=== PATIENT | male | born 1945 | race Hispanic/Latino ===

== ENCOUNTER 2017-02-17 17:37 | Inpatient (IN) | payer MEDICARE ==
[2017-02-17] MEDS ORDERED: MORPHINE IV PRN (18:38)
[2017-02-17] MEDS ORDERED: DILAUDID IV PRN (21:24)
[2017-02-17] MEDS: LOPRESSOR PO SCH ×2 (22:02→22:07)
[2017-02-17] MEDS: HEPARIN SUB-Q SCH (22:03)
[2017-02-17] MEDS: ZOSYN/NS 4.5GM/100ML 4.5 GM/100 ML VIAL IV SCH (23:00)
[2017-02-17] MEDS: NACL 0.9% 1000 ML 1,000 ML IV SCH (23:21)
[2017-02-18 06:14] LABS: Basophils % (Auto) 0.7 % (0.0-1.8); Eosinophils % (Auto) 2.2 % (0.0-4.3); Hematocrit 37.7 % (35.5-45.6); Hemoglobin 12.8 gm/dl (11.8-15.2); Mean Corpuscular HGB Conc 34 % (32-34); Mean Corpuscular Hemoglobin 32 pg (28-32); Mean Corpuscular Volume 93 fl (84-94); Platelet Count 114 K/mm3 (140-440); Red Blood Count 4.04 M/mm3 (3.65-5.03); Red Cell Distribution Width 14.2 % (13.2-15.2); White Blood Count 6.1 K/mm3 (4.5-11.0)
[2017-02-18] MEDS: ZOSYN/NS 4.5GM/100ML 4.5 GM/100 ML VIAL IV SCH ×3 (06:14→22:28)
[2017-02-18 06:30] LABS: Anion Gap 15 mmol/L; BUN/Creatinine Ratio 12; Blood Urea Nitrogen 11 mg/dL (9-20); Calcium 8.3 mg/dL (8.4-10.2); Carbon Dioxide 27 mmol/L (22-30); Chloride 103.3 mmol/L (98-107); Glucose 96 mg/dL (75-100); Sodium 141 mmol/L (137-145)
--- NOTE | 2017-02-18 07:10 | History and Physical Report ---
History of Present Illness Date of admission: 02/17/17 19:26 Chief complaint: I have diverticulitis History of present illness: 71 YO Male with Atrial Fib, HTN directly admitted to [facility] at the request of Dr. Iraheta. Pt seen and evaluated by his surgeon and underwent a CT abdomen and pelvis and was found to have diverticulitis with microperforation. Pt seen and evaluated upon arrival. Pt resting comfortably in bed, and is in no acute distress. Pt states that his pain is at level 2, but increases slightly with movement. Pt denies fever, chills, CP, Palpitations, NVD, Syncope, BRBPR, recent ill contacts, Trauma, unintentional weight loss, night sweats, productive cough, or worsening abdominal pain. Past History Past Medical History: atrial fib, hypertension Past Surgical History: Other (Toe surgery) Social history: , lives with family. denies: smoking, alcohol abuse, prescription drug abuse Family history: no significant family history, other (reviewed) Medications and Allergies Allergies Allergy/AdvReac Type Severity Reaction Status Date / Time No Known Allergies Allergy Unverified 02/17/17 18:16 Active Meds: Active Medications Heparin Sodium (Porcine) (Heparin) 5,000 unit SUB-Q Q12H [facility] Last Admin: 02/17/17 22:03 Dose: 5,000 unit Hydromorphone HCl (Dilaudid) 0.5 mg IV Q6H PRN PRN Reason: Pain , Severe (7-10) Last Admin: 02/17/17 21:59 Dose: 0.5 mg Sodium Chloride (Nacl 0.9% 1000 Ml) 1,000 mls @ 100 mls/hr IV DIRECT [facility] Last Admin: 02/17/17 23:21 Dose: 100 mls/hr Piperacillin Sod/Tazobactam Sod (Zosyn/Ns 4.5gm/100ml) 4.5 gm in 100 mls @ 200 mls/hr IV Q8HR [facility] PRN Reason: Protocol Last Admin: 02/18/17 06:14 Dose: 200 mls/hr Metoprolol Tartrate (Lopressor) 50 mg PO DAILY [facility] Last Admin: 02/17/17 22:07 Dose: Not Given Review of Systems Constitutional: other (diverticulitis), no weight gain, no fever, no chills, no sweats, no night sweats, no fatigue, no weakness Ears, nose, mouth and throat: no ear pain, no ear discharge, no tinnitis, no decreased hearing, no nose pain, no nasal congestion Cardiovascular: no chest pain, no orthopnea, no palpitations, no rapid/ irregular heart beat, no edema, no syncope, no lightheadedness, no shortness of breath Respiratory: no cough, no cough with sputum, no excessive sputum, no hemoptysis Gastrointestinal: abdominal pain, no nausea, no vomiting, no diarrhea, no constipation, no change in bowel habits, no hematemesis, no BRBPR, no melena, no hematochezia, no loss of appetite Genitourinary Male: no dysuria, no hematuria, no flank pain, no discharge Rectal: no pain, no incontinence, no bleeding Musculoskeletal: no neck stiffness, no neck pain, no shooting arm pain, no arm numbness/tingling, no low back pain Integumentary: no rash, no pruritis, no redness, no sores, no wounds Neurological: no transient paralysis, no paralysis, no weakness, no parathesias , no numbness, no tingling, no seizures Psychiatric: no anxiety, no memory loss, no change in sleep habits, no sleep disturbances, no insomnia, no hypersomnia Endocrine: no cold intolerance, no heat intolerance, no polyphagia, no excessive thirst, no polydipsia, no polyuria, no nocturia Hematologic/Lymphatic: no easy bruising, no easy bleeding Allergic/Immunologic: no urticaria, no allergic rhinitis, no wheezing Exam - Constitutional Vitals: Temp Pulse Resp BP Pulse Ox 98.6 F 75 16 87/54 96 02/18/17 05:15 02/18/17 05:15 02/18/17 05:15 02/18/17 05:15 02/18/17 05:15 General appearance: Present: no acute distress, well-nourished - EENT Eyes: Present: PERRL ENT: hearing intact, clear oral mucosa - Neck Neck: Present: supple, normal ROM - Respiratory Respiratory effort: normal Respiratory: bilateral: CTA - Cardiovascular Heart Sounds: Present: S1 & S2. Absent: rub, click - Extremities Extremities: pulses symmetrical, No edema Peripheral Pulses: within normal limits - Abdominal General gastrointestinal: Present: soft, non-tender, non-distended, normal bowel sounds. Absent: hepatomegaly, splenomegaly, mass, hernia Localized gastrointestinal: tender: LUQ (No rebound, guarding, no peritoneal signs) Male genitourinary: Present: normal - Rectal Rectal Exam: normal rectal tone - Integumentary Integumentary: Present: clear, warm, dry - Musculoskeletal Musculoskeletal: gait normal, strength equal bilaterally - Psychiatric Psychiatric: appropriate mood/affect, intact judgment & insight - Neurologic Neurologic: CNII-XII intact, moves all extremities Results - Labs CBC & Chem 7: 02/18/17 05:19 02/18/17 05:19 Labs: Abnormal lab results 02/18/17 02/18/17 Range/Units 05:19 05:19 Plt Count 114 L (140-440) K/mm3 [place] % (Auto) 10.7 H (0.0-7.3) % Calcium 8.3 L (8.4-10.2) mg/dL Assessment and Plan - Patient Problems (1) Diverticulitis Current Visit: Yes Status: Acute Plan to address problem: IV abx, pain control, supportive care, surgery consulted, serial abdominal exam , repeat imaging of abdomen/surgical intervention as per surgical team. Hold aspirin/therapeutic anticoagulation for now, initiate heparin drip, NPO at midnight, bowel rest, IVF resuscitation, (2) Perforation bowel Current Visit: Yes Status: Acute Plan to address problem: Surgery consulted, serial abdominal exam, surgical intervention as per surgical team. (3) Atrial fib/flutter, transient Current Visit: Yes Status: Acute Plan to address problem: Discontinue oral therapeutic anticoagulation, initiate heparin drip, continue rate control with metoprolol (4) HTN (hypertension) Current Visit: Yes Status: Acute Plan to address problem: monitor bp q shift, pain control, resume metoprolol, (5) DVT prophylaxis Current Visit: Yes Status: Acute
--- NOTE | 2017-02-18 07:54 | Progress Note ---
Assessment and Plan Assessment and plan: --Acute diverticulitis : Continue nothing by mouth, IV fluids, IV antibiotics, surgery following supportive care --Possible microperforation; continue supportive care --History of recurrent diverticulitis; management per surgery Antibiotics and IV fluids --History of atrial fibrillation; rate controlled Continue current beta blockers and supportive care, hold anticoagulation --Hypertension: Continue current antihypertensives and when necessary medications --DVT prophylaxis; SCDs --Full code Follow surgery evaluation and recommendations Plan of care discussed with the patient answered all his questions History Interval history: Patient seen and examined in his room this morning medical records reviewed Admitted with acute diverticulitis and possible microperforation Nothing by mouth status, on IV fluids and IV antibiotics Patient feels possible mild left lower quadrant pain Denies nausea vomiting Hospitalist Physical - Constitutional Vitals: Temp Pulse Resp BP Pulse Ox 98.6 F 75 16 87/54 96 02/18/17 05:15 02/18/17 05:15 02/18/17 05:15 02/18/17 05:15 02/18/17 05:15 General appearance: Present: no acute distress, well-nourished - EENT Eyes: Present: PERRL, EOM intact - Neck Neck: Present: supple, normal ROM - Respiratory Respiratory effort: normal Respiratory: negative: rales, rhonchi, wheezing - Cardiovascular Rhythm: regular Heart Sounds: Present: S1 & S2 - Extremities Extremities: no ischemia, No edema - Abdominal General gastrointestinal: soft, tender (no guarding no rigidity), non-distended , hypoactive bowel sounds - Integumentary Integumentary: Present: clear, warm - Psychiatric Psychiatric: appropriate mood/affect, cooperative - Neurologic Neurologic: CNII-XII intact, moves all extremities Results - Labs CBC & Chem 7: 02/18/17 05:19 02/18/17 05:19 Labs: Laboratory Last Values WBC 6.1 K/mm3 (4.5-11.0) 02/18/17 05:19 RBC 4.04 M/mm3 (3.65-5.03) 02/18/17 05:19 Hgb 12.8 gm/dl (11.8-15.2) 02/18/17 05:19 Hct 37.7 % (35.5-45.6) 02/18/17 05:19 MCV 93 fl (84-94) 02/18/17 05:19 MCH 32 pg (28-32) 02/18/17 05:19 MCHC 34 % (32-34) 02/18/17 05:19 RDW 14.2 % (13.2-15.2) 02/18/17 05:19 Plt Count 114 K/mm3 (140-440) L 02/18/17 05:19 Lymph % (Auto) 29.5 % (13.4-35.0) 02/18/17 05:19 [place] % (Auto) 10.7 % (0.0-7.3) H 02/18/17 05:19 Eos % (Auto) 2.2 % (0.0-4.3) 02/18/17 05:19 Baso % (Auto) 0.7 % (0.0-1.8) 02/18/17 05:19 Lymph # 1.8 K/mm3 (1.2-5.4) 02/18/17 05:19 [place] # 0.7 K/mm3 (0.0-0.8) 02/18/17 05:19 Eos # 0.1 K/mm3 (0.0-0.4) 02/18/17 05:19 Baso # 0.0 K/mm3 (0.0-0.1) 02/18/17 05:19 Seg Neutrophils % 56.9 % (40.0-70.0) 02/18/17 05:19 Seg Neutrophils # 3.5 K/mm3 (1.8-7.7) 02/18/17 05:19 Sodium 141 mmol/L (137-145) 02/18/17 05:19 Potassium 4.0 mmol/L (3.6-5.0) 02/18/17 05:19 Chloride 103.3 mmol/L (98-107) 02/18/17 05:19 Carbon Dioxide 27 mmol/L (22-30) 02/18/17 05:19 Anion Gap 15 mmol/L 02/18/17 05:19 BUN 11 mg/dL (9-20) 02/18/17 05:19 Creatinine 0.9 mg/dL (0.8-1.5) 02/18/17 05:19 Estimated GFR > 60 ml/min 02/18/17 05:19 BUN/Creatinine Ratio 12 % 02/18/17 05:19 Glucose 96 mg/dL (75-100) 02/18/17 05:19 Calcium 8.3 mg/dL (8.4-10.2) L 02/18/17 05:19
[2017-02-18] MEDS: NACL 0.9% 1000 ML 1,000 ML IV SCH ×2 (08:28→19:15)
[2017-02-18] MEDS: HEPARIN SUB-Q SCH ×2 (11:22→22:30)
[2017-02-18] MEDS: LOPRESSOR PO SCH ×2 (11:23→22:30)
[2017-02-18] MEDS: PROTONIX IV SCH (11:26)
--- NOTE | 2017-02-18 15:02 | Consultation ---
History of Present Illness Consult date: 02/18/17 Reason for consult: other (Perforated diverticulitis) - History of present illness History of present illness: 71 year old male who was discharged about a month ago for an episode of diverticulitis. This was managed conservatively. He presented to my office yesterday with a 12 hour history of bilateral lower quadrant abdominal pain, left greater than right. He stated that this felt similar to his recent episode of diverticulitis. He denied any associated fever or chills but did state that he has noticed some hematochezia. He has never had a colonoscopy. We are waiting for his diverticulitis to resolve before scheduling for colonoscopy. He denies any hematuria, dysuria or urinary frequency. He is on Eloquis for atrial fibrillation. Past History Past Medical History: atrial fib, hypertension Past Surgical History: Other (Toe surgery) Social history: , lives with family. denies: smoking, alcohol abuse, prescription drug abuse Family history: no significant family history, other (reviewed) Medications and Allergies Allergies Allergy/AdvReac Type Severity Reaction Status Date / Time No Known Allergies Allergy Unverified 02/17/17 18:16 Active Meds: Active Medications Heparin Sodium (Porcine) (Heparin) 5,000 unit SUB-Q Q12H [facility] Last Admin: 02/18/17 11:22 Dose: Not Given Hydromorphone HCl (Dilaudid) 0.5 mg IV Q6H PRN PRN Reason: Pain , Severe (7-10) Last Admin: 02/17/17 21:59 Dose: 0.5 mg Sodium Chloride (Nacl 0.9% 1000 Ml) 1,000 mls @ 100 mls/hr IV DIRECT [facility] Last Admin: 02/18/17 08:28 Dose: 100 mls/hr Piperacillin Sod/Tazobactam Sod (Zosyn/Ns 4.5gm/100ml) 4.5 gm in 100 mls @ 200 mls/hr IV Q8HR [facility] PRN Reason: Protocol Last Admin: 02/18/17 06:14 Dose: 200 mls/hr Metoprolol Tartrate (Lopressor) 50 mg PO DAILY [facility] Last Admin: 02/18/17 11:23 Dose: Not Given Pantoprazole Sodium (Protonix) 40 mg IV QDAY [facility] Last Admin: 02/18/17 11:26 Dose: 40 mg Review of Systems All systems: negative Exam Vital Signs Temp Pulse Resp BP Pulse Ox 98.6 F 89 21 139/93 98 02/17/17 20:41 02/17/17 20:41 02/17/17 20:41 02/17/17 20:41 02/17/17 20:41 - General physical appearance Positive: well developed, well nourished, no distress - Eyes Positive: PERRL, normal occular movement - ENT Positive: normal pinna, normal nares, normal mucosa, no hearing loss, no congestion - Neck Positive: no masses, no bruits, trachea midline, no venous distension - Respiratory Positive: normal expansion, normal respiratory effort, clear to auscultation - Cardiovascular Rhythm: irregularly irregular - Extremities Extremities: no ischemia, pulses symmetrical, No edema - Breasts Breasts: deferred - Abdomen Abdomen: Present: soft, tender (Mildly TTP in the LLQ without rebound, guarding or cough tenderness.) Hernia: none - Genitourinary Male Genitourinary: deferred - Integumentary no rash, no growths, no abnormal pigmentation - Neurologic Neurologic: alert and oriented to time, place and person, motor strength and sensation are grossly intact - Musculoskeletal normal gait, normal posture - Psychiatric Psychiatric: appropriate mood/affect, intact judgment & insight Results - Labs 02/18/17 05:19 02/18/17 05:19 Abnormal lab results 02/18/17 02/18/17 Range/Units 05:19 05:19 Plt Count 114 L (140-440) K/mm3 [place] % (Auto) 10.7 H (0.0-7.3) % Calcium 8.3 L (8.4-10.2) mg/dL Diabetes panel 02/18/17 Range/Units 05:19 Sodium 141 (137-145) mmol/L Potassium 4.0 (3.6-5.0) mmol/L Chloride 103.3 (98-107) mmol/L Carbon Dioxide 27 (22-30) mmol/L BUN 11 (9-20) mg/dL Creatinine 0.9 (0.8-1.5) mg/dL Glucose 96 (75-100) mg/dL Calcium 8.3 L (8.4-10.2) mg/dL Calcium panel 02/18/17 Range/Units 05:19 Calcium 8.3 L (8.4-10.2) mg/dL Pituitary panel 02/18/17 Range/Units 05:19 Sodium 141 (137-145) mmol/L Potassium 4.0 (3.6-5.0) mmol/L Chloride 103.3 (98-107) mmol/L Carbon Dioxide 27 (22-30) mmol/L BUN 11 (9-20) mg/dL Creatinine 0.9 (0.8-1.5) mg/dL Glucose 96 (75-100) mg/dL Calcium 8.3 L (8.4-10.2) mg/dL Adrenal panel 02/18/17 Range/Units 05:19 Sodium 141 (137-145) mmol/L Potassium 4.0 (3.6-5.0) mmol/L Chloride 103.3 (98-107) mmol/L Carbon Dioxide 27 (22-30) mmol/L BUN 11 (9-20) mg/dL Creatinine 0.9 (0.8-1.5) mg/dL Glucose 96 (75-100) mg/dL Calcium 8.3 L (8.4-10.2) mg/dL - Imaging Additional studies: CBC, BMP and UA done yesterday were unremarkable. CT of abdomen and pelvis with contrast done yesterday revealed diverticulitis with a small amount of free, sub-diaphragmatic air. Assessment and Plan - Patient Problems (1) Diverticulitis Current Visit: Yes Status: Acute Plan to address problem: 1) Continue bowel rest 2) Continue IV Zosyn 3) Hold Eliquis 4) CBC in the am 5) SCD
[2017-02-19] MEDS: NACL 0.9% 1000 ML 1,000 ML IV SCH (05:49)
[2017-02-19] MEDS: ZOSYN/NS 4.5GM/100ML 4.5 GM/100 ML VIAL IV SCH ×3 (05:49→22:16)
[2017-02-19 06:41] LABS: Basophils % (Auto) 1.3 % (0.0-1.8); Eosinophils % (Auto) 3.1 % (0.0-4.3); Hematocrit 37.8 % (35.5-45.6); Mean Corpuscular HGB Conc 34 % (32-34); Mean Corpuscular Hemoglobin 32 pg (28-32); Mean Corpuscular Volume 93 fl (84-94); Platelet Count 113 K/mm3 (140-440); Red Blood Count 4.07 M/mm3 (3.65-5.03); Red Cell Distribution Width 14.3 % (13.2-15.2); White Blood Count 5.1 K/mm3 (4.5-11.0)
[2017-02-19 07:12] LABS: Alanine Aminotransferase 16 units/L (7-56); Albumin 3.5 g/dL (3.9-5); Albumin/Globulin Ratio 1.3 %; Alkaline Phosphatase 52 units/L (35-129); Anion Gap 16 mmol/L; BUN/Creatinine Ratio 11; Blood Urea Nitrogen 9 mg/dL (9-20); Calcium 8.2 mg/dL (8.4-10.2); Carbon Dioxide 25 mmol/L (22-30); Chloride 107.1 mmol/L (98-107); Glucose 85 mg/dL (75-100); Potassium 3.7 mmol/L (3.6-5.0); Sodium 144 mmol/L (137-145); Total Protein 6.2 g/dL (6.3-8.2)
--- NOTE | 2017-02-19 08:14 | Progress Note ---
Assessment and Plan Assessment and plan: --Hypophosphatemia: Replace per protocol and monitor levels --Acute diverticulitis : Symptoms significantly improved May consider clear liquids, IV fluids, IV antibiotics, surgery following --Possible microperforation; possible mild localized peritonitis, continue supportive care --History of recurrent diverticulitis; management per surgery Antibiotics and IV fluids --History of atrial fibrillation; rate controlled Continue current beta blockers and supportive care, hold anticoagulation --Hypertension: Well controlled ,Continue current antihypertensives and when necessary medications --DVT prophylaxis; SCDs --Full code Possible discharge in 1-2 days on oral antibiotics Plan of care discussed with the patient verbalized understanding History Interval history: Patient seen and evaluated medical records reviewed Feels slightly better, denies nausea vomiting, had diarrhea significant improvement of abdominal pain Vital signs reviewed Hospitalist Physical - Constitutional Vitals: Temp Pulse Resp BP Pulse Ox 98.3 F 77 20 125/85 95 02/19/17 04:49 02/19/17 04:49 02/19/17 04:49 02/19/17 04:49 02/19/17 04:49 General appearance: Present: no acute distress, well-nourished - EENT Eyes: Present: PERRL, EOM intact - Neck Neck: Present: supple, normal ROM - Respiratory Respiratory effort: normal Respiratory: negative: rales, rhonchi, wheezing - Cardiovascular Rhythm: regular Heart Sounds: Present: S1 & S2 - Extremities Extremities: no ischemia, No edema - Abdominal General gastrointestinal: soft, tender (significant improvement, no guarding no rigidity), non-distended, normal bowel sounds - Integumentary Integumentary: Present: clear, warm - Psychiatric Psychiatric: appropriate mood/affect, cooperative - Neurologic Neurologic: CNII-XII intact, moves all extremities Results - Labs CBC & Chem 7: 02/19/17 06:10 02/19/17 06:10 Labs: Laboratory Last Values WBC 5.1 K/mm3 (4.5-11.0) 02/19/17 06:10 RBC 4.07 M/mm3 (3.65-5.03) 02/19/17 06:10 Hgb 13.0 gm/dl (11.8-15.2) 02/19/17 06:10 Hct 37.8 % (35.5-45.6) 02/19/17 06:10 MCV 93 fl (84-94) 02/19/17 06:10 MCH 32 pg (28-32) 02/19/17 06:10 MCHC 34 % (32-34) 02/19/17 06:10 RDW 14.3 % (13.2-15.2) 02/19/17 06:10 Plt Count 113 K/mm3 (140-440) L 02/19/17 06:10 Lymph % (Auto) 30.5 % (13.4-35.0) 02/19/17 06:10 [place] % (Auto) 9.2 % (0.0-7.3) H 02/19/17 06:10 Eos % (Auto) 3.1 % (0.0-4.3) 02/19/17 06:10 Baso % (Auto) 1.3 % (0.0-1.8) 02/19/17 06:10 Lymph # 1.5 K/mm3 (1.2-5.4) 02/19/17 06:10 [place] # 0.5 K/mm3 (0.0-0.8) 02/19/17 06:10 Eos # 0.2 K/mm3 (0.0-0.4) 02/19/17 06:10 Baso # 0.1 K/mm3 (0.0-0.1) 02/19/17 06:10 Seg Neutrophils % 55.9 % (40.0-70.0) 02/19/17 06:10 Seg Neutrophils # 2.8 K/mm3 (1.8-7.7) 02/19/17 06:10 Sodium 144 mmol/L (137-145) 02/19/17 06:10 Potassium 3.7 mmol/L (3.6-5.0) 02/19/17 06:10 Chloride 107.1 mmol/L (98-107) H 02/19/17 06:10 Carbon Dioxide 25 mmol/L (22-30) 02/19/17 06:10 Anion Gap 16 mmol/L 02/19/17 06:10 BUN 9 mg/dL (9-20) 02/19/17 06:10 Creatinine 0.8 mg/dL (0.8-1.5) 02/19/17 06:10 Estimated GFR > 60 ml/min 02/19/17 06:10 BUN/Creatinine Ratio 11 % 02/19/17 06:10 Glucose 85 mg/dL (75-100) 02/19/17 06:10 Calcium 8.2 mg/dL (8.4-10.2) L 02/19/17 06:10 Phosphorus 2.10 mg/dL (2.5-4.5) L 02/19/17 06:10 Magnesium 2.00 mg/dL (1.7-2.3) 02/19/17 06:10 Total Bilirubin 0.90 mg/dL (0.1-1.2) 02/19/17 06:10 AST 13 units/L (5-40) 02/19/17 06:10 ALT 16 units/L (7-56) 02/19/17 06:10 Alkaline Phosphatase 52 units/L (35-129) 02/19/17 06:10 Total Protein 6.2 g/dL (6.3-8.2) L 02/19/17 06:10 Albumin 3.5 g/dL (3.9-5) L 02/19/17 06:10 Albumin/Globulin Ratio 1.3 % 02/19/17 06:10
[2017-02-19] MEDS: LOPRESSOR PO SCH (09:37)
[2017-02-19] MEDS: PROTONIX IV SCH (09:39)
[2017-02-19] MEDS: HEPARIN SUB-Q SCH (10:00)
[2017-02-19] MEDS ORDERED: KPHOS 40 MMOL in NACL 0.9% 500 ML 500 ML IV ONE (10:00)
--- NOTE | 2017-02-19 14:22 | Consultation ---
History of Present Illness - Reason for Consult Consult date: 02/19/17 perforated diverticultitis Requesting physician: MAURA IRAHETA - History of Present Illness 71 years old male with history of diverticulitis, admitted on 02/18/2017 due to severe left lower quadrant abdominal pain associated with nausea, malaise and subjective fever. Pain was initially 6 out of 10 but became worse progressively. Pain is sharp and sometimes crampy. Patient reports nausea no vomiting. Patient denies diarrhea. In the emergency room, initial temperature was 98.6, heart rate 98, respiration 21, blood pressure 139/93. White count 6.1. Hemoglobin 12.8. Platelets 114. Creatinine 0.9. CT of the abdomen showed diverticulitis with small amount of free air. Current Antimicrobials: Zosyn 02/17 Previous Antimicrobials: Microbiology: none Past History Past Medical History: atrial fib, hypertension Past Surgical History: Other (Toe surgery) Social history: , lives with family. denies: smoking, alcohol abuse, prescription drug abuse Family history: no significant family history, other (reviewed) Medications and Allergies Allergies Allergy/AdvReac Type Severity Reaction Status Date / Time No Known Allergies Allergy Unverified 02/17/17 18:16 Active Meds: Active Medications Heparin Sodium (Porcine) (Heparin) 5,000 unit SUB-Q Q12H [facility] Last Admin: 02/18/17 22:30 Dose: 5,000 unit Hydromorphone HCl (Dilaudid) 0.5 mg IV Q6H PRN PRN Reason: Pain , Severe (7-10) Last Admin: 02/17/17 21:59 Dose: 0.5 mg Sodium Chloride (Nacl 0.9% 1000 Ml) 1,000 mls @ 100 mls/hr IV DIRECT [facility] Last Admin: 02/19/17 05:49 Dose: 100 mls/hr Piperacillin Sod/Tazobactam Sod (Zosyn/Ns 4.5gm/100ml) 4.5 gm in 100 mls @ 200 mls/hr IV Q8HR [facility] PRN Reason: Protocol Last Admin: 02/19/17 05:49 Dose: 200 mls/hr Potassium Phosphate 40 mmol/ (Sodium Chloride) 513.3333 mls @ 83 mls/hr IV ONCE ONE Stop: 02/19/17 16:11 Last Admin: 02/19/17 09:39 Dose: 83 mls/hr Metoprolol Tartrate (Lopressor) 50 mg PO DAILY [facility] Last Admin: 02/19/17 09:37 Dose: 50 mg Pantoprazole Sodium (Protonix) 40 mg IV QDAY [facility] Last Admin: 02/19/17 09:39 Dose: 40 mg Review of Systems All systems: negative (as per hpi rest neg) Physical Examination - Physical Exam Narrative exam: General appearance: Alert in NAD, conversant Eyes: anicteric sclerae, moist conjunctivae; no lid-lag; PERRLA HENT: Atraumatic; oropharynx clear Neck: Trachea midline; supple, no thyromegaly or lymphadenopathy Lungs: CTA, with normal respiratory effort and no intercostal retractions CV: RRR, no murmurs Abdomen: Soft, +LLQ pain Extremities: No peripheral edema or extremity lymphadenopathy Skin: Normal temperature, turgor and texture; no rash, ulcers or subcutaneous nodules Psych: Appropriate affect, alert and oriented to person, place and time. Neuro: alert and oriented x 3. Moving all extermities Lines: No CVL / PICC - Constitutional Vitals: Vital Signs Temp Pulse Resp BP Pulse Ox 97.6 F 70 18 144/93 96 02/19/17 10:58 02/19/17 10:58 02/19/17 10:58 02/19/17 10:58 02/19/17 10:58 Temperature -Last 24 Hours Temperature 97.6 F Temperature 97.9 F Temperature 98.3 F Temperature 98.7 F Temperature 98.7 F Temperature 98.7 F Results - Labs CBC & Chem 7: 02/19/17 06:10 02/19/17 06:10 Labs: Abnormal lab results 02/19/17 02/19/17 Range/Units 06:10 06:10 Plt Count 113 L (140-440) K/mm3 [place] % (Auto) 9.2 H (0.0-7.3) % Chloride 107.1 H (98-107) mmol/L Calcium 8.2 L (8.4-10.2) mg/dL Phosphorus 2.10 L (2.5-4.5) mg/dL Total Protein 6.2 L (6.3-8.2) g/dL Albumin 3.5 L (3.9-5) g/dL Assessment and Plan Assessment: 1) Perforated diverticulitis: CT of the abdomen showed diverticulitis with small amount of free air. No evidence of sepsis. Plan: -check CRP -continue zosyn IV -ok to d/c from ID stand point on levaquin 750 mg PO qday and flagyl 500 mg po q8h total 10 days -close monitoring of abdominal pain Thank you Dr Iraheta for your consultation, will follow up with you. Rochelle Osman MD Infectious Diseases Specialist [facility] M [phone] O [phone]
--- NOTE | 2017-02-19 14:53 | Query- Peritonitis ---
Deaalda Nguyen Date:__02/19/2017 Loan Processor/CDS:__Richa Phone#:__[phone] Exercise your independent professional judgment when responding to query. Questions asked do not imply a particular answer is desired or expected. We greatly appreciate your clarification on this issue. Clinical Documentation States: 71 Year old male was admitted on 02/17/2017 for diverticulitis with microperforation. The Hospitalist (Dr. Marshall) progress note on 02/19/2017 "--Acute diverticulitis : Continue nothing by mouth, IV fluids, IV antibiotics, surgery following supportive care --Possible microperforation; continue supportive care --History of recurrent diverticulitis; management per surgery Antibiotics and IV fluids." Please clarify: [x ] Localized peritonitis [ ] Peritoneal inflammation [ ] Generalized peritonitis [ ] Peritoneal infection [ ] Retroperitoneal infection [ ] Peritoneal irritation [ ] Retroperitoneal inflammation [ ] Omentitis [ ] Other: [ ] Comment/Explanation: Present on Admission: [ x] Yes (Y) [ ] Clinically undeterminable (W) [ ] No (N) Please also document response in your Progress Notes and/or Discharge Summary and indicate if the condition was present on admission. MTDD
--- NOTE | 2017-02-19 14:58 | Progress Note ---
Assessment and Plan - Patient Problems (1) Diverticulitis Current Visit: Yes Status: Acute Plan to address problem: 1) ID consult 2) Continue IV Zosyn 3) Check CBC and CEA in the am 4) DC SQ Heparin 5) Ambulate in halls at least qid 6) DC home in 24-48 hrs if without problems Subjective Date of service: 02/19/17 Patient Reports: Positive: other (C/o pain with Heparin SQ injections. Is walking a lot. Wants to know if Heparin can be dc'd.) Objective Vital Signs - 12hr 02/19/17 02/19/17 02/19/17 04:49 07:22 09:37 Temperature 98.3 F 97.9 F Pulse Rate 77 66 Respiratory 20 18 Rate Blood Pressure 125/85 134/83 134/83 O2 Sat by Pulse 95 92 Oximetry 02/19/17 10:58 Temperature 97.6 F Pulse Rate 70 Respiratory 18 Rate Blood Pressure 144/93 O2 Sat by Pulse 96 Oximetry - Abdomen PM_46_EXABD1 4, PM_46_EXABD1 6, PM_46_EXABD1 8 Hernia: none - Labs 02/19/17 06:10 02/19/17 06:10 Diabetes panel 02/19/17 Range/Units 06:10 Sodium 144 (137-145) mmol/L Potassium 3.7 (3.6-5.0) mmol/L Chloride 107.1 H (98-107) mmol/L Carbon Dioxide 25 (22-30) mmol/L BUN 9 (9-20) mg/dL Creatinine 0.8 (0.8-1.5) mg/dL Glucose 85 (75-100) mg/dL Calcium 8.2 L (8.4-10.2) mg/dL AST 13 (5-40) units/L ALT 16 (7-56) units/L Alkaline Phosphatase 52 (35-129) units/L Total Protein 6.2 L (6.3-8.2) g/dL Albumin 3.5 L (3.9-5) g/dL Calcium panel 02/19/17 Range/Units 06:10 Calcium 8.2 L (8.4-10.2) mg/dL Phosphorus 2.10 L (2.5-4.5) mg/dL Albumin 3.5 L (3.9-5) g/dL Pituitary panel 02/19/17 Range/Units 06:10 Sodium 144 (137-145) mmol/L Potassium 3.7 (3.6-5.0) mmol/L Chloride 107.1 H (98-107) mmol/L Carbon Dioxide 25 (22-30) mmol/L BUN 9 (9-20) mg/dL Creatinine 0.8 (0.8-1.5) mg/dL Glucose 85 (75-100) mg/dL Calcium 8.2 L (8.4-10.2) mg/dL Adrenal panel 02/19/17 Range/Units 06:10 Sodium 144 (137-145) mmol/L Potassium 3.7 (3.6-5.0) mmol/L Chloride 107.1 H (98-107) mmol/L Carbon Dioxide 25 (22-30) mmol/L BUN 9 (9-20) mg/dL Creatinine 0.8 (0.8-1.5) mg/dL Glucose 85 (75-100) mg/dL Calcium 8.2 L (8.4-10.2) mg/dL Total Bilirubin 0.90 (0.1-1.2) mg/dL AST 13 (5-40) units/L ALT 16 (7-56) units/L Alkaline Phosphatase 52 (35-129) units/L Total Protein 6.2 L (6.3-8.2) g/dL Albumin 3.5 L (3.9-5) g/dL
[2017-02-20] MEDS: ZOSYN/NS 4.5GM/100ML 4.5 GM/100 ML VIAL IV SCH ×3 (06:03→21:53)
[2017-02-20 06:30] LABS: Basophils % (Auto) 1.1 % (0.0-1.8); Eosinophils % (Auto) 3.9 % (0.0-4.3); Hematocrit 41.2 % (35.5-45.6); Hemoglobin 13.8 gm/dl (11.8-15.2); Mean Corpuscular HGB Conc 34 % (32-34); Mean Corpuscular Hemoglobin 31 pg (28-32); Mean Corpuscular Volume 92 fl (84-94); Platelet Count 129 K/mm3 (140-440); Red Cell Distribution Width 13.7 % (13.2-15.2); White Blood Count 5.5 K/mm3 (4.5-11.0)
[2017-02-20 06:45] LABS: Anion Gap 17 mmol/L; BUN/Creatinine Ratio 8; Blood Urea Nitrogen 7 mg/dL (9-20); Calcium 8.5 mg/dL (8.4-10.2); Carbon Dioxide 24 mmol/L (22-30); Chloride 105.3 mmol/L (98-107); Glucose 88 mg/dL (75-100); Potassium 3.8 mmol/L (3.6-5.0); Sodium 142 mmol/L (137-145)
--- NOTE | 2017-02-20 09:03 | Progress Note ---
Assessment and Plan Assessment and plan: --Hypophosphatemia: Corrected --Acute diverticulitis : Symptoms significantly improved On clear liquids, advance as tolerated IV antibiotics, surgery following --Possible microperforation; possible mild localized peritonitis, continue supportive care --History of recurrent diverticulitis; management per surgery Antibiotics and IV fluids --History of atrial fibrillation; rate controlled Continue current beta blockers and supportive care, hold anticoagulation --Hypertension: Well controlled ,Continue current antihypertensives and when necessary medications --DVT prophylaxis; SCDs --Full code Possible discharge in 1-2 days on oral antibiotics Plan of care discussed with the patient verbalized understanding History Interval history: Patient seen and examined today Feels better no new complaints On clear liquids, advance the diet as tolerated Hospitalist Physical - Constitutional Vitals: Temp Pulse Resp BP Pulse Ox 98.4 F 70 18 128/88 97 02/20/17 07:58 02/20/17 07:58 02/20/17 07:58 02/20/17 07:58 02/20/17 07:58 General appearance: Present: no acute distress, well-nourished - EENT Eyes: Present: PERRL, EOM intact - Neck Neck: Present: supple, normal ROM - Respiratory Respiratory effort: normal Respiratory: negative: rales, rhonchi, wheezing - Cardiovascular Rhythm: regular Heart Sounds: Present: S1 & S2 - Extremities Extremities: no ischemia, No edema Peripheral Pulses: within normal limits - Abdominal General gastrointestinal: soft, non-tender, non-distended, normal bowel sounds - Integumentary Integumentary: Present: clear, warm - Psychiatric Psychiatric: appropriate mood/affect, cooperative - Neurologic Neurologic: CNII-XII intact, moves all extremities Results - Labs CBC & Chem 7: 02/20/17 05:53 02/20/17 05:53 Labs: Laboratory Last Values WBC 5.5 K/mm3 (4.5-11.0) 02/20/17 05:53 RBC 4.50 M/mm3 (3.65-5.03) 02/20/17 05:53 Hgb 13.8 gm/dl (11.8-15.2) 02/20/17 05:53 Hct 41.2 % (35.5-45.6) 02/20/17 05:53 MCV 92 fl (84-94) 02/20/17 05:53 MCH 31 pg (28-32) 02/20/17 05:53 MCHC 34 % (32-34) 02/20/17 05:53 RDW 13.7 % (13.2-15.2) 02/20/17 05:53 Plt Count 129 K/mm3 (140-440) L 02/20/17 05:53 Lymph % (Auto) 35.5 % (13.4-35.0) H 02/20/17 05:53 [place] % (Auto) 8.7 % (0.0-7.3) H 02/20/17 05:53 Eos % (Auto) 3.9 % (0.0-4.3) 02/20/17 05:53 Baso % (Auto) 1.1 % (0.0-1.8) 02/20/17 05:53 Lymph # 1.9 K/mm3 (1.2-5.4) 02/20/17 05:53 [place] # 0.5 K/mm3 (0.0-0.8) 02/20/17 05:53 Eos # 0.2 K/mm3 (0.0-0.4) 02/20/17 05:53 Baso # 0.1 K/mm3 (0.0-0.1) 02/20/17 05:53 Seg Neutrophils % 50.8 % (40.0-70.0) 02/20/17 05:53 Seg Neutrophils # 2.8 K/mm3 (1.8-7.7) 02/20/17 05:53 Sodium 142 mmol/L (137-145) 02/20/17 05:53 Potassium 3.8 mmol/L (3.6-5.0) 02/20/17 05:53 Chloride 105.3 mmol/L (98-107) 02/20/17 05:53 Carbon Dioxide 24 mmol/L (22-30) 02/20/17 05:53 Anion Gap 17 mmol/L 02/20/17 05:53 BUN 7 mg/dL (9-20) L 02/20/17 05:53 Creatinine 0.9 mg/dL (0.8-1.5) 02/20/17 05:53 Estimated GFR > 60 ml/min 02/20/17 05:53 BUN/Creatinine Ratio 8 % 02/20/17 05:53 Glucose 88 mg/dL (75-100) 02/20/17 05:53 Calcium 8.5 mg/dL (8.4-10.2) 02/20/17 05:53 Phosphorus 2.60 mg/dL (2.5-4.5) D 02/20/17 05:53 Magnesium 2.00 mg/dL (1.7-2.3) 02/19/17 06:10 Total Bilirubin 0.90 mg/dL (0.1-1.2) 02/19/17 06:10 AST 13 units/L (5-40) 02/19/17 06:10 ALT 16 units/L (7-56) 02/19/17 06:10 Alkaline Phosphatase 52 units/L (35-129) 02/19/17 06:10 C-Reactive Protein 5.60 mg/dL (0.00-1.30) H 02/19/17 15:36 Total Protein 6.2 g/dL (6.3-8.2) L 02/19/17 06:10 Albumin 3.5 g/dL (3.9-5) L 02/19/17 06:10 Albumin/Globulin Ratio 1.3 % 02/19/17 06:10
[2017-02-20] MEDS: LOPRESSOR PO SCH (10:33)
[2017-02-20] MEDS: PROTONIX IV SCH (10:34)
--- NOTE | 2017-02-20 11:42 | Progress Note ---
Assessment and Plan Assessment: 1) Perforated diverticulitis: CT of the abdomen showed diverticulitis with small amount of free air. No evidence of sepsis. Clinically better. CRP=5.6. Plan: -continue zosyn IV -ok to d/c from ID stand point on ciprofloxacin 500 mg PO BID and flagyl 500 mg po q8h total 10 days - cipro is free at [facility] -close monitoring of abdominal pain I am signing off Thank you Dr Iraheta for your consultation, will follow up with you. Rochelle Osman MD Infectious Diseases Specialist [facility] ([facility]) M [phone] O [phone] Subjective Date of service: 02/20/17 Principal diagnosis: perf diverticulitis Interval history: Feels better no abdominal pain no fever. Current Antimicrobials: Zosyn 02/17 Previous Antimicrobials: Microbiology: none Objective - Exam Narrative Exam: General appearance: Alert in NAD, conversant Eyes: anicteric sclerae, moist conjunctivae; no lid-lag; PERRLA HENT: Atraumatic; oropharynx clear Neck: Trachea midline; supple, no thyromegaly or lymphadenopathy Lungs: CTA, with normal respiratory effort and no intercostal retractions CV: RRR, no murmurs Abdomen: Soft, non tender Extremities: No peripheral edema or extremity lymphadenopathy Skin: Normal temperature, turgor and texture; no rash, ulcers or subcutaneous nodules Psych: Appropriate affect, alert and oriented to person, place and time. Neuro: alert and oriented x 3. Moving all extermities Lines: No CVL / PICC - Constitutional Vitals: Vital Signs Temp Pulse Resp BP Pulse Ox 98.4 F 70 18 128/88 97 02/20/17 07:58 02/20/17 07:58 02/20/17 07:58 02/20/17 10:33 02/20/17 07:58 Temperature -Last 24 Hours Temperature 98.4 F Temperature 97.3 F Temperature 98.3 F - Labs CBC & Chem 7: 02/20/17 05:53 02/20/17 05:53 Labs: Abnormal lab results 02/19/17 02/20/17 02/20/17 Range/Units 15:36 05:53 05:53 Plt Count 129 L (140-440) K/mm3 Lymph % (Auto) 35.5 H (13.4-35.0) % [place] % (Auto) 8.7 H (0.0-7.3) % BUN 7 L (9-20) mg/dL C-Reactive Protein 5.60 H (0.00-1.30) mg/dL
[2017-02-20] MEDS: NACL 0.9% 1000 ML 1,000 ML IV SCH ×2 (13:05→23:54)
--- NOTE | 2017-02-20 13:56 | Progress Note ---
Assessment and Plan - Patient Problems (1) Diverticulitis Current Visit: Yes Status: Acute Plan to address problem: 1) Advance to FLD 2) Can discharge tomorrow morning from my perspective. 3) F/u in my office in 2 weeks 4) High fiber diet on discharge Subjective Date of service: 02/20/17 Patient Reports: Positive: no new complaints (Minimal to no abdominal pain. No problems with CLD. Passing flatus and having BM's.) Objective Vital Signs - 12hr 02/20/17 02/20/17 07:58 10:33 Temperature 98.4 F Pulse Rate 70 Respiratory 18 Rate Blood Pressure 128/88 128/88 O2 Sat by Pulse 97 Oximetry - Abdomen PM_46_EXABD1 4, PM_46_EXABD1 6, PM_46_EXABD1 8 Hernia: none - Labs 02/20/17 05:53 02/20/17 05:53 Diabetes panel 02/20/17 Range/Units 05:53 Sodium 142 (137-145) mmol/L Potassium 3.8 (3.6-5.0) mmol/L Chloride 105.3 (98-107) mmol/L Carbon Dioxide 24 (22-30) mmol/L BUN 7 L (9-20) mg/dL Creatinine 0.9 (0.8-1.5) mg/dL Glucose 88 (75-100) mg/dL Calcium 8.5 (8.4-10.2) mg/dL Calcium panel 02/20/17 Range/Units 05:53 Calcium 8.5 (8.4-10.2) mg/dL Phosphorus 2.60 D (2.5-4.5) mg/dL Pituitary panel 02/20/17 Range/Units 05:53 Sodium 142 (137-145) mmol/L Potassium 3.8 (3.6-5.0) mmol/L Chloride 105.3 (98-107) mmol/L Carbon Dioxide 24 (22-30) mmol/L BUN 7 L (9-20) mg/dL Creatinine 0.9 (0.8-1.5) mg/dL Glucose 88 (75-100) mg/dL Calcium 8.5 (8.4-10.2) mg/dL Adrenal panel 02/20/17 Range/Units 05:53 Sodium 142 (137-145) mmol/L Potassium 3.8 (3.6-5.0) mmol/L Chloride 105.3 (98-107) mmol/L Carbon Dioxide 24 (22-30) mmol/L BUN 7 L (9-20) mg/dL Creatinine 0.9 (0.8-1.5) mg/dL Glucose 88 (75-100) mg/dL Calcium 8.5 (8.4-10.2) mg/dL
[2017-02-20] MEDS ORDERED: APRESOLINE IV ONE (18:42)
[2017-02-21] MEDS ORDERED: TYLENOL PO PRN (04:26)
[2017-02-21] MEDS ORDERED: APRESOLINE IV ONE (04:26)
[2017-02-21] MEDS: ZOSYN/NS 4.5GM/100ML 4.5 GM/100 ML VIAL IV SCH ×2 (06:02→14:29)
[2017-02-21 08:23] VITALS: BP 144/99
--- NOTE | 2017-02-21 09:29 | Discharge Summary ---
Providers - Providers Date of Admission: 02/17/17 19:26 Date of discharge: 02/21/17 Attending physician: JAZLYN ARTIS 02/17/17 18:23 Consult to Physician [CONS] Routine Consulting Provider: MAURA JAIN Reason For Exam: DIVERTICULITIS W/ MICROPERFORATION Place consult to:: DR. MAURA JAIN Notified:: yes Phone number called:: [phone] Was contact made?: Yes If yes, spoke with:: DR. MAURA JAIN Time called:: 17:25 Comment:: DR. Chantel JAIN AWARE OF CONSULT. 02/19/17 11:01 Consult to Physician [CONS] Routine Consulting Provider: MAURA JAIN Reason For Exam: Perforated diverticulitis Place consult to:: Manolo Notified:: . 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 Additional Physician Instructions: upon discharge please do ciprofloxacin 500 mg PO BID and flagyl 500 mg po q8h total 10 days - cipro is free at [facility] Primary care physician: THOMAS WALDRON Hospitalization Reason for admission: CT abd & pelvis acute diverticulitis and micro perforation Condition: Good Hospital course: At the present 71-year-old male patient was admitted through emergency room with abdominal pain and diarrhea, patient was seen by surgeon as outpatient, CT abdomen findings consistent with acute diverticulitis Kevin microperforation, and some days in the peritoneal cavity Admitted symptomatically managed, placed nothing by mouth, start now on IV antibiotics IV fluids Symptoms gradually but significantly improved, diet was started with clear liquids and advance as tolerated Today he is comfortable in bed no new complaints Vital signs are stable [id number] evaluation physical examination done by me prior to discharge is unremarkable Patient is hemodynamically and clinically stable for discharge and follow up with surgeon in 3-4 days for further evaluation and management Patient is ambulatory and tolerating food Surgically cleared for discharge and follow up with them in the office Discharge diagnosis; management --Acute diverticulitis : advance as tolerated oral oral Flagyl and Cipro for 10 days , follow surgery in 2-3 days --Mild localized peritonitis secondary to microperforation, significantly improved --Hypophosphatemia: Corrected --History of recurrent diverticulitis; management per surgery --History of atrial fibrillation; rate controlled, resume beta blockers and anticoagulation, Eliquis --Hypertension: Well controlled ,Continue current antihypertensives and when necessary medications Disposition: DC-01 TO HOME OR SELFCARE Time spent for discharge: 33 min Core Measure Documentation - Palliative Care Palliative Care/ Comfort Measures: Not Applicable - Core Measures Any of the following diagnoses?: none Exam - Constitutional Vitals: Temp Pulse Resp BP Pulse Ox 98.4 F 73 20 144/99 97 02/21/17 08:20 02/21/17 08:20 02/21/17 08:20 02/21/17 08:20 02/21/17 08:20 General appearance: Present: no acute distress, well-nourished - EENT Eyes: Present: PERRL, EOM intact - Neck Neck: Present: supple, normal ROM - Respiratory Respiratory effort: normal Respiratory: bilateral: diminished, negative: rales, rhonchi, wheezing - Cardiovascular Rhythm: regular Heart Sounds: Present: S1 & S2 - Extremities Extremities: no ischemia, No edema Peripheral Pulses: within normal limits - Abdominal General gastrointestinal: Present: soft, non-tender, non-distended, normal bowel sounds - Integumentary Integumentary: Present: clear, warm - Musculoskeletal Musculoskeletal: strength equal bilaterally - Psychiatric Psychiatric: appropriate mood/affect, cooperative - Neurologic Neurologic: CNII-XII intact, moves all extremities Plan Activity: no restrictions Diet: advance as tolerated, other (soft diet) Additional Instructions: If you have severe abdominal pain and nausea vomiting, contact M.D. or go to emergency room Follow up with: THOMAS WALDRON MD [Primary Care Provider] - 7 Days MAURA JAIN MD [Staff Physician] - 7 Days Prescriptions: Ciprofloxacin HCl [Ciprofloxacin TAB] 500 mg PO Q12H #20 tab metroNIDAZOLE [Flagyl] 500 mg PO Q8HR #30 tablet oxyCODONE /ACETAMINOPHEN [Percocet 5/325] 1 tab PO BID PRN #10 tablet PRN Reason: Pain
[2017-02-21] MEDS: LOPRESSOR PO SCH (09:49)
[2017-02-21] MEDS ORDERED: PROTONIX PO SCH (10:00)
--- NOTE | 2017-02-21 12:08 | Progress Note ---
Assessment and Plan Assessment: 1) Perforated diverticulitis: CT of the abdomen showed diverticulitis with small amount of free air. No evidence of sepsis. Clinically better. CRP=5.6. Plan: -continue zosyn IV -ok to d/c from ID stand point on ciprofloxacin 500 mg PO BID and flagyl 500 mg po q8h total 10 days - [facility]ipro [facility] -close monitoring of abdominal pain I am signing off Thank you Dr Iraheta for your consultation, will follow up with you. Rochelle Osman MD Infectious Diseases Specialist [facility] ([facility]) M [phone] O [phone] Subjective Date of service: 02/21/17 Principal diagnosis: perf diverticulitis Interval history: Feels better no abdominal pain no fever. Current Antimicrobials: Zosyn 02/17 Previous Antimicrobials: Microbiology: none Objective - Exam Narrative Exam: General appearance: Alert in NAD, conversant Eyes: anicteric sclerae, moist conjunctivae; no lid-lag; PERRLA HENT: Atraumatic; oropharynx clear Neck: Trachea midline; supple, no thyromegaly or lymphadenopathy Lungs: CTA, with normal respiratory effort and no intercostal retractions CV: RRR, no murmurs Abdomen: Soft, non tender Extremities: No peripheral edema or extremity lymphadenopathy Skin: Normal temperature, turgor and texture; no rash, ulcers or subcutaneous nodules Psych: Appropriate affect, alert and oriented to person, place and time. Neuro: alert and oriented x 3. Moving all extermities Lines: No CVL / PICC - Constitutional Vitals: Vital Signs Temp Pulse Resp BP Pulse Ox 98.4 F 73 20 144/99 97 02/21/17 08:20 02/21/17 08:20 02/21/17 08:20 02/21/17 09:49 02/21/17 08:20 Temperature -Last 24 Hours Temperature 98.4 F Temperature 98.5 F Temperature 37.6 F Temperature 32.1 F Temperature 97.7 F Temperature 98.6 F - Labs CBC & Chem 7: 02/20/17 05:53 02/20/17 05:53
== END 2017-02-21 14:15 | disposition home or self-care (01) | DRG 392 ==
LOC: 3A 17:37 → UNDOADMIN 17:37 → 3A 19:26
PROVIDERS: ADMIT Internal Medicine; ATTEND Internal Medicine
DX: K57.20 Diverticulitis of large intestine with perforation and abscess without bleeding (principal); I48.92 Unspecified atrial flutter; I10 Essential (primary) hypertension; I48.91 Unspecified atrial fibrillation; E83.39 Other disorders of phosphorus metabolism
CPT/HCPCS: 36415; 80048; 80053; 82378; 83735; 84100; 85025; 86140; C9113; J0360; J1170; J1644; J2543; J7030; J7040

== ENCOUNTER 2017-04-23 06:05 | Day surgery (SDC) | payer MEDICARE ==
--- NOTE | 2017-04-23 07:23 | Anesthesia Day of Surgery ---
Anesthesia Day of Surgery - Day of Surgery Patient Examined: Yes Patient H&P Reviewed: Yes Patient is NPO: Yes
--- NOTE | 2017-04-23 07:24 | Anesthesia Consultation ---
Anesthesia Consult and Med Hx Date of service: 04/23/17 - Airway Anesthetic Teeth Evaluation: Good ROM Head & Neck: Adequate Mental/Hyoid Distance: Adequate Mallampati Class: Class II Intubation Access Assessment: Probably Good - Pulmonary Exam CTA: Yes - Cardiac Exam Cardiac Exam: RRR - Pre-Operative Health Status ASA Pre-Surgery Classification: ASA3 Proposed Anesthetic Plan: General - Pulmonary Hx Asthma: No COPD: No Hx Pneumonia: No - Cardiovascular System Hx Hypertension: Yes Hx Valvular Heart Disease: Yes (Afib/flutter) - Endocrine Hx End Stage Renal Disease: No - Additional Comments Anesthesia Medical History Comments: diverticulitis/perforated bowel
[2017-04-23] MEDS ORDERED: DIPRIVAN 10 MG/ML IV ONE ×2 (07:33)
[2017-04-23] MEDS ORDERED: NACL 0.9% 1000 ML 1,000 ML IV SCH (08:00)
[2017-04-23 08:31] VITALS: BP 123/90
--- NOTE | 2017-04-23 08:44 | Post Anesthesia Evaluation ---
- Post Anesthesia Evaluation Patient Participated: Yes Airway Patent: Yes Stable Respiratory Function: Yes Nausea/Vomiting: No Temp > 96.8F: Yes Pain Manageable: Yes Adequeate Hydration: Yes Anesthesia Complications: No
--- NOTE | 2017-04-23 09:41 | Procedure Note ---
Date of procedure: 04/23/17 Pre-op diagnosis: history of perforated diverticulitis Post-op diagnosis: other (moderately severe sigmoid diverticulosis) Procedure: Colonoscopy to cecum Description of procedure: Patient was placed in a left lateral decubitus position. He was then sedated intravenously by anesthesia. Colonoscope was inserted into the patient's rectum and was advanced retrograde while directly visualizing his colonic lumen. The prep was adequate. Once the cecum was identified, the scope was slowly withdrawn with careful circumferential visualization of his colonic mucosa. No tumors, polyps, AVMs or ulcerations were identified. Moderately severe diverticular disease of the sigmoid colon was noted and photo documented. Retroflexed view of the distal rectum was also performed revealing mild internal hemorrhoids. Insufflated air was aspirated from the rectum and the scope withdrawn. Patient tolerated the procedure well. He was recovered in the GI suite. Anesthesia: MAC Surgeon: MAURA JAIN Estimated blood loss: none Pathology: none Condition: stable Disposition: same day
== END 2017-04-23 06:06 | disposition home or self-care (01) ==
LOC: GIO 06:05
PROVIDERS: ATTEND Surgery
DX: K57.92 Diverticulitis of intestine, part unspecified, without perforation or abscess without bleeding (principal); K57.30 Diverticulosis of large intestine without perforation or abscess without bleeding; I10 Essential (primary) hypertension; I48.91 Unspecified atrial fibrillation; I48.92 Unspecified atrial flutter; Z79.01 Long term (current) use of anticoagulants
CPT/HCPCS: 45378; J2704